=== PATIENT | female | born 1965 | race American Indian/Alaskan Native ===

== ENCOUNTER 2017-09-04 18:57 | Emergency (ER) | payer MEDICAID ==
[2017-09-04] MEDS ORDERED: TORADOL IM ONE (20:11)
--- NOTE | 2017-09-04 20:16 | Emergency Department Report ---
ED Back Pain/Injury HPI - General Chief Complaint: Extremity Injury, Lower Stated Complaint: R LEG PAIN AND SWELL Time Seen by Provider: 09/04/17 20:00 Source: patient Limitations: Other - History of Present Illness Initial Comments: This is a 52-year-old female nontoxic, well nourished in appearance, no acute signs of distress presents to the ED with c/o of acute on chronic right sided lower back pain that radiates to to right lower extremity x1 month. Patient stated she walk up with this pain and denies any trauma. Patient states has history of sciatica nerve pain which is similar symptoms as today. Denies any bladder or bowel instability. Denies any fever, chills, nausea, abdominal pain , vomiting, headache, stiff neck, chest pain or shortness of breath. Patient denies any numbness or tingling. Denies any allergies. Patient stated past medical history of asthma, HTN and chlecystectomy. MD Complaint: back pain -: month(s) (1) Similar Symptoms Previously: Yes Place: home Radiation: right leg Severity: mild Severity scale (0 -10): 8 Quality: aching Consistency: intermittent Improves With: immobilization, supine, sitting upright Worsens With: movement, walking Associated Symptoms: denies other symptoms. denies: confusion, weakness, chest pain, numbness, difficulty walking, cough, difficulty urinating, diaphoresis, incontinence, fever/chills, constipation, headaches, abdominal pain, loss of appetite, malaise, nausea/vomiting, rash, seizure, shortness of breath, syncope - Related Data Previous Rx's Medication Instructions Recorded Last Taken Type HYDROcodone/APAP 5-325 [[place] 1 each PO Q6HR PRN #20 tablet 11/20/13 Unknown Rx 5/325] Metoclopramide [Reglan] 10 mg PO ACHS #20 tablet 11/20/13 Unknown Rx Cyclobenzaprine [Flexeril] 10 mg PO QHS PRN #7 tablet 09/04/17 Unknown Rx Ibuprofen [Motrin] 600 mg PO Q8H PRN #30 tablet 09/04/17 Unknown Rx Allergies Allergy/AdvReac Type Severity Reaction Status Date / Time No Known Allergies Allergy Verified 09/04/13 22:10 ED Review of Systems ROS: Stated complaint: R LEG PAIN AND SWELL Other details as noted in HPI Constitutional: denies: chills, fever Eyes: denies: eye pain, eye discharge, vision change ENT: denies: ear pain, throat pain Respiratory: denies: cough, shortness of breath, wheezing Cardiovascular: denies: chest pain, palpitations Endocrine: no symptoms reported Gastrointestinal: denies: abdominal pain, nausea, diarrhea Genitourinary: denies: urgency, dysuria, discharge Musculoskeletal: back pain, arthralgia. 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 - Surgical History Past Surgical History?: Yes Hx Cholecystectomy: Yes Additional Surgical History: abd hernia repair/c section/glaucoma - Social History Smoking Status: Never Smoker Substance Use Type: None - Medications Home Medications: Home Medications Medication Instructions Recorded Confirmed Last Taken Type HYDROcodone/APAP 5-325 [[place] 1 each PO Q6HR PRN #20 tablet 11/20/13 Unknown Rx 5/325] Metoclopramide [Reglan] 10 mg PO ACHS #20 tablet 11/20/13 Unknown Rx Cyclobenzaprine [Flexeril] 10 mg PO QHS PRN #7 tablet 09/04/17 Unknown Rx Ibuprofen [Motrin] 600 mg PO Q8H PRN #30 tablet 09/04/17 Unknown Rx ED Physical Exam - General Limitations: Other General appearance: alert, in no apparent distress - Head Head exam: Present: atraumatic, normocephalic - Eye Eye exam: Present: normal appearance Pupils: Present: normal accommodation - ENT ENT exam: Present: normal exam, mucous membranes moist - Neck Neck exam: Present: normal inspection, full ROM. Absent: tenderness, meningismus, lymphadenopathy - Respiratory Respiratory exam: Present: normal lung sounds bilaterally. Absent: respiratory distress, wheezes, rales, rhonchi, chest wall tenderness, accessory muscle use, decreased breath sounds, prolonged expiratory - Cardiovascular Cardiovascular Exam: Present: regular rate, normal rhythm, normal heart sounds. Absent: bradycardia, tachycardia, irregular rhythm, systolic murmur, diastolic murmur, rubs, gallop - GI/Abdominal GI/Abdominal exam: Present: soft, normal bowel sounds. Absent: distended, tenderness, guarding, rebound, rigid, diminished bowel sounds - Rectal Rectal exam: Present: deferred - Extremities Exam Extremities exam: Present: normal inspection, full ROM, tenderness, normal capillary refill, calf tenderness. Absent: pedal edema, joint swelling - Expanded Lower Extremity Exam Right Hip exam: Present: normal inspection, full ROM Upper Leg exam: Present: normal inspection, tenderness Knee exam: Present: normal inspection, full ROM, full knee extension. Absent: tenderness, swelling, abrasion, laceration, ecchymosis, deformity, crepidus, dislocation, erythema, effusion, pain w/ pronation/supination, posterior draw sign, pain/laxity with valgus, pain/laxity with varus Lower Leg exam: Present: normal inspection, full ROM, tenderness, Gustavo's sign. Absent: swelling, abrasion, laceration, ecchymosis, deformity, crepidus, dislocation, erythema, palpable cord Ankle exam: Present: normal inspection, full ROM. Absent: tenderness, swelling Foot/Toe exam: Present: normal inspection, full ROM Neuro vascular tendon exam: Present: no vascular compromise. Absent: pulse deficit, abnormal cap refill, motor deficit, sensory deficit, tendon deficit, extremity cold to touch, pallor, abnormal 2-point discrimination, decreased fine /light touch, foot drop, peroneal nerve deficit, significant pain with passive ROM of distal joint Gait: Positive: observed and normal - Back Exam Back exam: Present: normal inspection, full ROM, paraspinal tenderness (right lumbar region). Absent: tenderness, CVA tenderness (R), CVA tenderness (L), muscle spasm, vertebral tenderness, rash noted - Expanded Back Exam Expanded Back exam: Absent: saddle anesthesia Back exam: Negative Straight Leg Raising: Left, Right - Neurological Exam Neurological exam: Present: alert, oriented X3, CN II-XII intact, normal gait - Psychiatric Psychiatric exam: Present: normal affect, normal mood - Skin Skin exam: Present: warm, dry, intact, normal color. Absent: rash ED Course Vital Signs 09/04/17 09/04/17 19:35 20:35 Temperature 98.9 F Pulse Rate 74 Respiratory 16 18 Rate Blood Pressure 151/76 O2 Sat by Pulse 99 Oximetry - Reevaluation(s) Reevaluation #1: 09/04/17 20:17 Patient is speaking in full sentences with no signs of distress noted. - Consultations Consultation #1: 09/04/17 21:50 Patient has been consulted with Dr. Pfeiffer about patient history, physical exam , and labs and stated to give 100 subq Lovenox with a Doppler study tomorrow morning and discharge plan of care. ED Medical Decision Making - Lab Data Result diagrams: 09/04/17 20:19 09/04/17 20:19 - Medical Decision Making This is a 52-year-old male that presents with low back musclar strain . Patient is stable was examined by me. There is no spinal tenderness. There is no cauda equina syndrome during examination. D-dimmer elevated. Wells criteria is negative but I spoke to Dr. Pfeiffer and agreed upon given patient Lovenox with a Doppler exam to be done tomorrow morning and patient was instructed to return at 7 AM to radiology department. I gave patient a prescription for the Doppler study. No bladder or bowel instability. patient was instructed to be careful with any trauma due to receiving Lovenox which causes her to be within. There was calf tenderness so a d-dimmer was obtained due to no US tech in the ED in this current time. Patient received Toradol 60 mg IM in the ED which preceded his symptoms has resolved and subsided. Negative Holmans test. Patient is discharged with muscle relaxant and Motrin. Patient was instructed not to operate any machinery while taking muscle relaxant as they cause her drowsiness. Patient was referred to Follow-up with a primary care doctor in 3-5 days or if symptoms worsen and continue return to emergency room as soon as possible. At time of discharge, the patient does not seem toxic or ill in appearance. No acute signs of distress noted. Patient agrees to discharge treatment plan of care. No further questions noted by the patient. This chart is dictated with using [employer] D[employer] Critical care attestation.: If time is entered above; I have spent that time in minutes in the direct care of this critically ill patient, excluding procedure time. ED Disposition Clinical Impression: Right calf pain Low back strain Qualifiers: Encounter type: initial encounter Qualified Code(s): S39.012A - Strain of muscle, fascia and tendon of lower back, initial encounter Disposition: - TO HOME OR SELFCARE Is pt being admited?: No Does the pt Need Aspirin: No Condition: Stable Instructions: Cyclobenzaprine (By mouth), Deep Venous Thrombosis (ED), Low Back Strain (ED) Additional Instructions: You were strictly instructed to return tomorrow morning at 7 AM for a Doppler venous study to rule out deep vein thrombosis Follow-up with your primary care doctor in 3-5 days or if symptoms worsen such as bladder or bowel stability, chest pain, short of breath, numbness or tingling sensation in extremities, headache, dizziness, visual changes, nausea vomiting, or abdominal pain, return back to emergency room as was possible. Take ibuprofen and Flexeril as prescribed. Do not operate heavy machinery while taking Flexeril due to sedation Prescriptions: Cyclobenzaprine [Flexeril] 10 mg PO QHS PRN #7 tablet PRN Reason: Muscle Spasm Ibuprofen [Motrin] 600 mg PO Q8H PRN #30 tablet PRN Reason: Pain Referrals: PRIMARY CARE, [Primary Care Provider] - 3-5 Days CAROL GILMORE MD [Staff Physician] - 3-5 Days [facility] [Outside] - 3-5 Days [facility] [Outside] - 3-5 Days
[2017-09-04 20:43] LABS: BUN/Creatinine Ratio 20; Blood Urea Nitrogen 16 mg/dL (7-17); Calcium 9.5 mg/dL (8.4-10.2); Hemolysis Index 7
[2017-09-04 21:07] LABS: Hematocrit 35.9 % (30.3-42.9); Hemoglobin 11.6 gm/dl (10.1-14.3); Mean Corpuscular HGB Conc 32 % (30-34); Mean Corpuscular Hemoglobin 28 pg (28-32); Mean Corpuscular Volume 87 fl (79-97); Platelet Count 260 K/mm3 (140-440); Red Blood Count 4.16 M/mm3 (3.65-5.03); Red Cell Distribution Width 14.4 % (13.2-15.2)
[2017-09-04 21:41] LABS: INR 0.9 (0.87-1.13); Partial Thromboplastin Time 30.4 Sec. (24.2-36.6)
[2017-09-04] MEDS ORDERED: LOVENOX SUB-Q ONE (21:44)
[2017-09-04 21:51] LABS: Alanine Aminotransferase 11 units/L (7-56); Albumin 4.1 g/dL (3.9-5); Bilirubin,Direct < 0.2 mg/dL (0-0.2)
[2017-09-04 21:56] LABS: Total Cells Counted 100
[2017-09-04 21:57] LABS: Anisocytosis 1+; Hypochromasia 1+; Ovalocytes Few; Poikilocytosis Few
[2017-09-05 05:13] VITALS: BP 148/75
== END 2017-09-04 22:33 | disposition home or self-care (01) ==
LOC: ED 18:57
DX: S39.012A Strain of muscle, fascia and tendon of lower back, initial encounter (principal); M79.605 Pain in left leg; I10 Essential (primary) hypertension; J45.909 Unspecified asthma, uncomplicated; X58.XXXA Exposure to other specified factors, initial encounter; Y93.89 Activity, other specified; Y92.89 Other specified places as the place of occurrence of the external cause; Y99.8 Other external cause status
CPT/HCPCS: 36415; 80048; 80074; 85007; 85025; 85379; 85610; 85730; 96372; 99283; J1650; J1885

== ENCOUNTER 2017-09-13 14:41 | Emergency (ER) | payer MEDICAID ==
[2017-09-13 15:15] VITALS: BP 122/45
[2017-09-13] MEDS ORDERED: MORPHINE IV ONE (16:31)
[2017-09-13] MEDS ORDERED: TORADOL IV ONE (16:31)
[2017-09-13] MEDS ORDERED: ZOFRAN IV ONE (16:31)
--- NOTE | 2017-09-13 16:36 | Emergency Department Report ---
ED Back Pain/Injury HPI - General Chief Complaint: Back Pain/Injury Stated Complaint: LOW BACK PAIN Source: patient, EMS Limitations: No Limitations - History of Present Illness Initial Comments: Ms. Singer is a 52-year-old female with 1 month for back pain radiating to both legs. Tylenol and Tylenol codeine does not provide any relief. She's been evaluated here in our ER earlier this month for similar symptoms. She also was evaluated by Dr. Barney Young her PCP. Ruled out for DVT. Pain is worse with ambulation. Pain is worse with movement. MD Complaint: back pain -: Gradual, month(s) (1) Similar Symptoms Previously: Yes Radiation: left leg, right leg Severity: severe Severity scale (0 -10): 10 Quality: sharp, dull Consistency: constant Worsens With: movement - Related Data Previous Rx's Medication Instructions Recorded Last Taken Type HYDROcodone/APAP 5-325 [[place] 1 each PO Q6HR PRN #20 tablet 11/20/13 Unknown Rx 5/325] Metoclopramide [Reglan] 10 mg PO ACHS #20 tablet 11/20/13 Unknown Rx Cyclobenzaprine [Flexeril] 10 mg PO QHS PRN #7 tablet 09/04/17 Unknown Rx Ibuprofen [Motrin] 600 mg PO Q8H PRN #30 tablet 09/04/17 Unknown Rx oxyCODONE /ACETAMINOPHEN [Percocet 1 tab PO Q6HR PRN #10 tablet 09/13/17 Unknown Rx 5/325] Allergies Allergy/AdvReac Type Severity Reaction Status Date / Time No Known Allergies Allergy Verified 09/13/17 15:15 ED Review of Systems ROS: Stated complaint: LOW BACK PAIN Other details as noted in HPI Comment: All other systems reviewed and negative Cardiovascular: denies: chest pain Gastrointestinal: denies: abdominal pain ED Past Medical Hx - Past Medical History Previous Medical History?: Yes Hx Hypertension: Yes Hx Diabetes: Yes Hx Asthma: Yes Additional medical history: sleep apnea, 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 - Surgical History Past Surgical History?: Yes Hx Cholecystectomy: Yes Additional Surgical History: abd hernia repair/c section/glaucoma - Social History Smoking Status: Never Smoker Substance Use Type: None - Medications Home Medications: Home Medications Medication Instructions Recorded Confirmed Last Taken Type HYDROcodone/APAP 5-325 [[place] 1 each PO Q6HR PRN #20 tablet 11/20/13 Unknown Rx 5/325] Metoclopramide [Reglan] 10 mg PO ACHS #20 tablet 11/20/13 Unknown Rx Cyclobenzaprine [Flexeril] 10 mg PO QHS PRN #7 tablet 09/04/17 Unknown Rx Ibuprofen [Motrin] 600 mg PO Q8H PRN #30 tablet 09/04/17 Unknown Rx oxyCODONE /ACETAMINOPHEN [Percocet 1 tab PO Q6HR PRN #10 tablet 09/13/17 Unknown Rx 5/325] ED Physical Exam - General Limitations: No Limitations General appearance: alert, in no apparent distress, other (laying on left side appears uncomfortable) - Head Head exam: Present: atraumatic, normocephalic - Eye Eye exam: Present: other (cataract in the left eye opaque) - ENT ENT exam: Present: mucous membranes moist - Neck Neck exam: Present: normal inspection - Respiratory Respiratory exam: Present: normal lung sounds bilaterally. Absent: respiratory distress, wheezes, rales, rhonchi - Cardiovascular Cardiovascular Exam: Present: regular rate, normal rhythm, normal heart sounds. Absent: systolic murmur, diastolic murmur, rubs, gallop - GI/Abdominal GI/Abdominal exam: Present: soft. Absent: distended, tenderness, guarding - Extremities Exam Extremities exam: Present: normal inspection, other (intact strength lower extremities bilaterally) - Back Exam Back exam: Present: normal inspection, full ROM. Absent: tenderness, CVA tenderness (R), CVA tenderness (L), muscle spasm, paraspinal tenderness, vertebral tenderness - Neurological Exam Neurological exam: Present: alert, oriented X3 - Psychiatric Psychiatric exam: Present: normal affect, normal mood - Skin Skin exam: Present: warm, dry, intact, normal color. Absent: rash ED Course Vital Signs 09/13/17 09/13/17 15:12 15:15 Temperature 98.3 F Pulse Rate 66 Respiratory 16 16 Rate Blood Pressure 122/45 O2 Sat by Pulse 96 96 Oximetry ED Medical Decision Making - Radiology Data Radiology results: report reviewed Arthritic changes lumbar spine no subluxation no fx - Medical Decision Making Ms. Singer presents with lower back pain radiating to both legs. Neurovascular intact. No signs of cauda equina or cord compression. Concern for lumbar degenerative disc disease or lumbar spinal stenosis. She will need outpatient evaluation by her PCP Dr. Barney Young. Upon further history, patient was referred to pain management last year. However she attributes her development of diabetes to her pain management treatment. Consequently she no longer wants to be under the care of pain management. I have prescribed 10 tablets of Percocet. She says follow-up with Dr. Young within the next week. She was recently evaluated by Dr. Young on . Critical care attestation.: If time is entered above; I have spent that time in minutes in the direct care of this critically ill patient, excluding procedure time. ED Disposition Clinical Impression: Back pain, Sciatica Disposition: TO HOME OR SELFCARE Is pt being admited?: No Does the pt Need Aspirin: No Condition: Stable Instructions: Lumbar Radiculopathy (ED) Prescriptions: oxyCODONE /ACETAMINOPHEN [Percocet 5/325] 1 tab PO Q6HR PRN #10 tablet PRN Reason: Pain Referrals: BARNEY YOUNG MD [Primary Care Provider] - 3-5 Days Time of Disposition: 18:06
--- NOTE | 2017-09-13 17:11 | XRay Report ---
FINAL REPORT PROCEDURE: XR SPINE LUMBOSACRAL 2-3V TECHNIQUE: Lumbar spine, three views HISTORY: back pain COMPARISON: No prior studies are available for comparison. FINDINGS: There is no scoliosis. The vertebral body heights and alignment are maintained. There are mild facet arthritic changes of the lower lumbar spine. IMPRESSION: No acute osseous abnormality is identified
[2017-09-13] MEDS ORDERED: MORPHINE IM ONE (17:15)
[2017-09-13] MEDS ORDERED: TORADOL IM ONE (17:15)
[2017-09-13] MEDS ORDERED: ZOFRAN ODT PO ONE (17:15)
[2017-09-13] MEDS ORDERED: PERCOCET 5/325 PO ONE (18:06)
== END 2017-09-13 19:11 | disposition home or self-care (01) ==
LOC: ED 14:41
DX: M54.40 Lumbago with sciatica, unspecified side (principal); I10 Essential (primary) hypertension; E11.9 Type 2 diabetes mellitus without complications; J45.909 Unspecified asthma, uncomplicated; Z90.49 Acquired absence of other specified parts of digestive tract; Z79.899 Other long term (current) drug therapy
CPT/HCPCS: 72100; 96372; 99284; J1885; J2270; J2405; Q0162

== ENCOUNTER 2021-01-29 13:31 | Outpatient (CLI) | payer MEDICAID ==
[2021-01-29] MEDS ORDERED: LIDOCAINE (4%) 40 MG/ML TOPICAL SOLN 50 ML BOTTLE TP ONE (14:34)
== END 2021-01-29 13:32 | disposition home or self-care (01) ==
LOC: WOUND 13:31
PROVIDERS: ATTEND Surgery
DX: E11.622 Type 2 diabetes mellitus with other skin ulcer (principal); L97.822 Non-pressure chronic ulcer of other part of left lower leg with fat layer exposed; L97.811 Non-pressure chronic ulcer of other part of right lower leg limited to breakdown of skin; L97.212 Non-pressure chronic ulcer of right calf with fat layer exposed; L97.222 Non-pressure chronic ulcer of left calf with fat layer exposed; I87.2 Venous insufficiency (chronic) (peripheral); E11.39 Type 2 diabetes mellitus with other diabetic ophthalmic complication; H42 Glaucoma in diseases classified elsewhere; I10 Essential (primary) hypertension; G47.30 Sleep apnea, unspecified; J45.909 Unspecified asthma, uncomplicated; H54.8 Legal blindness, as defined in USA; Z90.49 Acquired absence of other specified parts of digestive tract; Z79.84 Long term (current) use of oral hypoglycemic drugs
CPT/HCPCS: 99205; G0463; G0463-25

== ENCOUNTER 2022-01-22 00:17 | Emergency (ER) | payer MEDICAID ==
[2022-01-22 01:42] VITALS: BP 134/66
[2022-01-22] MEDS ORDERED: HYDROcodone/ACETAMINOPHEN 5-325 MG TAB PO ONE (08:55)
--- NOTE | 2022-01-22 09:24 | XRay Report ---
XR elbow 2V RT INDICATION / CLINICAL INFORMATION: elbow pain. COMPARISON: None available. FINDINGS: There is a remote healed fracture of the distal humerus. 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 Signer Name: Abelardo Reich MD Signed: 01/22/2022 9:20 AM Workstation Name: [id number]
--- NOTE | 2022-01-22 10:41 | Emergency Department Report ---
ED General Adult HPI - General Chief complaint: Pain General Stated complaint: HYPERGLYCEMIA Time Seen by Provider: 01/22/22 07:36 Source: patient Mode of arrival: Ambulatory Limitations: No Limitations - History of Present Illness Initial comments: 56-year-old female past medical history hypertension diabetes reports to the ER with complaints of right elbow pain for 3 days. Patient denies any recent injury. Patient reports her pain is 910. Patient reports taking naproxen with no improvement. No other acute signs and symptoms reported. Patient also requesting refills of her blood pressure medication as well as her diabetic medication. No other acute signs or symptoms reported. Severity scale (0 -10): 5 - Related Data Home Medications Medication Instructions Recorded Confirmed Last Taken Meclizine [Antivert] 25 mg PO TID PRN 07/20/21 07/20/21 Unknown Previous Rx's Medication Instructions Recorded Last Taken Type Metoclopramide [Reglan TAB] 10 mg PO ACHS #20 tablet 11/20/13 Unknown Rx Cyclobenzaprine [Flexeril 10 MG 10 mg PO QHS PRN #7 tablet 09/04/17 Unknown Rx TAB] AtorvaSTATin 10 mg PO QHS 30 Days #30 tab 07/21/21 Unknown Rx Acetaminophen/Codeine [Tylenol 1 tab PO Q6H PRN 2 Days #8 tab 01/22/22 Unknown Rx /Codeine # 3 tab] Albuterol Mdi (or & Nicu Only) 1 puff IH Q4HR PRN 30 Days #2 each 01/22/22 Unknown Rx [ProAir HFA Inhaler] Lisinopril/Hydrochlorothiazide 1 tab PO QDAY 30 Days #30 tab 01/22/22 Unknown Rx [Zestoretic 20-25 mg] glipiZIDE XL [Glucotrol Xl] 5 mg PO QAM 30 Days #30 tab 01/22/22 Unknown Rx metFORMIN XR [Glucophage XR] 1,000 mg PO BID 30 Days #120 tab 01/22/22 Unknown Rx Allergies Allergy/AdvReac Type Severity Reaction Status Date / Time banana Allergy Unknown Verified 01/22/22 01:44 ED Review of Systems ROS: Stated complaint: HYPERGLYCEMIA Other details as noted in HPI ED Past Medical Hx - Past Medical History Previous Medical History?: Yes Hx Hypertension: Yes Hx Congestive Heart Failure: No Hx Diabetes: Yes Hx Asthma: Yes Hx COPD: No Additional medical history: sleep apnea, 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, peripheral neuropathy right foot - Surgical History Past Surgical History?: Yes Hx Cholecystectomy: Yes Additional Surgical History: abd hernia repair/c section/glaucoma - Social History Smoking Status: Never Smoker Substance Use Type: None - Medications Home Medications: Home Medications Medication Instructions Recorded Confirmed Last Taken Type Metoclopramide [Reglan TAB] 10 mg PO ACHS #20 tablet 11/20/13 07/20/21 Unknown Rx Cyclobenzaprine [Flexeril 10 MG 10 mg PO QHS PRN #7 tablet 09/04/17 07/20/21 Unknown Rx TAB] Meclizine [Antivert] 25 mg PO TID PRN 07/20/21 07/20/21 Unknown History AtorvaSTATin 10 mg PO QHS 30 Days #30 tab 07/21/21 Unknown Rx Acetaminophen/Codeine [Tylenol 1 tab PO Q6H PRN 2 Days #8 tab 01/22/22 Unknown Rx /Codeine # 3 tab] Albuterol Mdi (or & Nicu Only) 1 puff IH Q4HR PRN 30 Days #2 each 01/22/22 Unknown Rx [ProAir HFA Inhaler] Lisinopril/Hydrochlorothiazide 1 tab PO QDAY 30 Days #30 tab 01/22/22 Unknown Rx [Zestoretic 20-25 mg] glipiZIDE XL [Glucotrol Xl] 5 mg PO QAM 30 Days #30 tab 01/22/22 Unknown Rx metFORMIN XR [Glucophage XR] 1,000 mg PO BID 30 Days #120 tab 01/22/22 Unknown Rx ED Physical Exam - General Limitations: No Limitations ED Course Vital Signs 01/22/22 01:37 Temperature 98.3 F Pulse Rate 58 L Respiratory 18 Rate Blood Pressure 134/66 [Left] O2 Sat by Pulse 95 Oximetry ED Medical Decision Making - Radiology Data Radiology results: report reviewed, image reviewed [facility] [address] [place] [address] XRay Report Signed Patient: MATTI MILLAN MR#: [id number] : 1965 Acct:[id number] Age/Sex: 56 / F ADM Date: 01/22/22 Loc: ED Attending Dr: Ordering Physician: MAXIMINO GAMBINO NP Date of Service: 01/22/22 Procedure(s): XR elbow 2V RT Accession Number(s): [id number] cc: MAXIMINO GAMBINO NP Fluoro Time In Minutes: XR elbow 2V RT INDICATION / CLINICAL INFORMATION: elbow pain. COMPARISON: None available. FINDINGS: There is a remote healed fracture of the distal humerus. There is severe DJD in the radiocapitellar and ulnar trochlear articulations. Signer Name: Abelardo Reich MD Signed: 01/22/2022 9:20 AM Workstation Name: [id number] Transcribed By: KLAUDIA Dictated By: Abelardo Reich MD Electronically Authenticated By: Abelardo Reich MD Signed Date/Time: 01/22/22919 DD/ 8 TD/TT: - Medical Decision Making 56-year-old female past medical history hypertension diabetes reports to the ER with complaints of right elbow pain for 3 days. Patient denies any recent injury. Patient reports her pain is 9/10. Patient reports taking naproxen with no improvement. No other acute signs and symptoms reported. Patient also requesting refills of her blood pressure medication as well as her diabetic medication. No other acute signs or symptoms reported. On physical exam patient has right elbow pain with decreased range of motion due to pain. No other acute signs or symptoms noted. No concern for infectious elbow or septic elbow. X-ray results FINDINGS: There is a remote healed fracture of the distal humerus. There is severe DJD in the radiocapitellar and ulnar trochlear articulations. Patient informed of x-ray findings. Patient informed to follow her primary care provider for further evaluation and pain management. Patient received medications for pain as well as refills on her medication. Patient agrees with plan of care and verbalized understanding. Patient informed symptoms are to get worse to report back to the ER. Patient stable for discharge home. Vital Signs 01/22/22 01:37 Temperature 98.3 F Pulse Rate 58 L Respiratory 18 Rate Blood Pressure 134/66 [Left] O2 Sat by Pulse 95 Oximetry Critical care attestation.: If time is entered above; I have spent that time in minutes in the direct care of this critically ill patient, excluding procedure time. ED Disposition Clinical Impression: Right elbow pain, Medication refill Disposition: 01 HOME / SELF CARE / HOMELESS Is pt being admited?: No Condition: Stable Instructions: Musculoskeletal Pain, Joint Pain Prescriptions: metFORMIN XR [Glucophage XR] 1,000 mg PO BID 30 Days #120 tab glipiZIDE XL [Glucotrol Xl] 5 mg PO QAM 30 Days #30 tab Albuterol Mdi (or & Nicu Only) [ProAir HFA Inhaler] 1 puff IH Q4HR PRN 30 Days #2 each PRN Reason: Shortness Of Breath Acetaminophen/Codeine [Tylenol /Codeine # 3 tab] 1 tab PO Q6H PRN 2 Days #8 tab PRN Reason: Pain , Severe (7-10) Lisinopril/Hydrochlorothiazide [Zestoretic 20-25 mg] 1 tab PO QDAY 30 Days #30 tab Referrals: JAZMINE OSULLIVAN MD [Primary Care Provider] - 3-5 Days
== END 2022-01-22 11:05 | disposition home or self-care (01) ==
LOC: ED 00:17
DX: M25.521 Pain in right elbow (principal); Z76.0 Encounter for issue of repeat prescription; I10 Essential (primary) hypertension; E11.9 Type 2 diabetes mellitus without complications; J45.909 Unspecified asthma, uncomplicated; Z90.49 Acquired absence of other specified parts of digestive tract; Z91.018 Allergy to other foods; Z79.899 Other long term (current) drug therapy
CPT/HCPCS: 82962; 99283